=== PATIENT | female | born 1950 | race Caucasian/White ===

== ENCOUNTER 2017-12-20 21:44 | Emergency (ER) | payer OTHER ==
[~2017-12-20] VITALS: Ht 172.7 cm; Wt 102.6 kg
[~2017-12-20 21:44] MED LIST: AMLODIPINE-BEN1 EAC2 PO; CIPRO500 MG PO; LEVOFLOXACIN250 MG PO; NEXIUM40 MG PO; TYLENOL EXTRA500 MG PO
[2017-12-20 22:57] LABS: HEMATOCRIT 42.2 % (36.0-46.0); HEMOGLOBIN 14.1 G/DL (11.9-15.5); MCH 29.3 PG (29.0-34.0); MCHC 33.4 G/DL (30.0-36.0); MCV 87.7 FL (83-99); PLATELET COUNT 273 K/uL (156-360); RBC DIS.WIDTH-CV 13.5 % (11.8-14.6); RBC DIS.WIDTH-SD 43.7 % (39-53); RED BLOOD COUNT 4.81 M/uL (3.80-5.20); WHITE BLOOD COUNT 7.3 K/uL (4.1-10.2)
[2017-12-20 23:08] LABS: ALBUMIN 4.1 g/dL (3.2-4.8); CHLORIDE 105 mEq/L (99-109); POTASSIUM 4.1 mEq/L (3.7-5.4); SODIUM 140 mEq/L (136-147)
[2017-12-20 23:11] LABS: GLUCOSE 155 mg/dL (70-99); TOTAL PROTEIN 7.7 g/dL (6.4-8.3)
[2017-12-20 23:12] LABS: TOTAL BILIRUBIN 0.4 mg/dL (0.0-1.0)
[2017-12-20 23:14] LABS: ALKALINE PHOSPHATASE 118 IU/L (3-129); GFR ESTIMATE (CALCULATED) 58 mL/min/
[2017-12-20 23:15] LABS: UREA NITROGEN (BUN) 19 mg/dL (9-23)
[2017-12-20 23:16] LABS: AST (GOT) 14 IU/L (2-34)
[2017-12-20 23:17] LABS: ALT (GPT) 12 IU/L (3-49)
[2017-12-21 00:32] VITALS: BP 168/94
== END 2017-12-21 00:32 | disposition home or self-care (01) ==
LOC: EME 21:44
PROVIDERS: Emergency Medicine
DX: I10 Essential (primary) hypertension (principal); F43.9 Reaction to severe stress, unspecified; E78.5 Hyperlipidemia, unspecified; K21.9 Gastro-esophageal reflux disease without esophagitis; Z90.49 Acquired absence of other specified parts of digestive tract; Z88.1 Allergy status to other antibiotic agents
CPT/HCPCS: 70450; 80053; 85027; 93005; 99281; 99284